=== PATIENT | female | born 1985 | race Asian ===

== ENCOUNTER 2018-10-13 20:06 | Inpatient (IN) | payer MEDICAID ==
[~2018-10-13] VITALS: Ht 154.9 cm; Wt 54.1 kg
[2018-10-13 20:27] VITALS: BP 104/69; PULSE 70; RESP 16
[2018-10-13] MEDS ORDERED: PREN-19 PO (20:31)
[2018-10-13] MEDS ORDERED: CALC600T24 PO (20:31)
[2018-10-13] MEDS ORDERED: ACET325T33 PO (20:31)
[2018-10-13] MEDS ORDERED: AL HYDROX/MG HYDROX/SIMETH 30 ML CUP PO PRN (22:00)
[2018-10-13] MEDS ORDERED: ACETAMINOPHEN 325 MG TAB PO PRN (22:00)
[2018-10-13] MEDS ORDERED: ONDANSETRON 4 MG INJ IV PRN (22:00)
[2018-10-13] MEDS: SOD CHLORIDE 0.9% 1,000 ML IV SCH (23:36)
[2018-10-14] MEDS: CEFTRIAXONE 1 GM/50 ML (PMX) 50 ML IVPB SCH ×2 (00:44→22:00)
--- NOTE | 2018-10-14 02:16 | TRIAGE ---
OB Triage Datetime Report Generated by CPN: 10/14/2018 02:16 Datetime: 10/14/2018 00:01 Heart Rate FHR Baseline Rate: 145 Monitor Mode: External US Variability: Moderate 6-25 bpm Accelerations: 10X10 Decelerations: None Category: Category I Comments: NST COMPLETED, REACTIVE NST APPROPRIATE FOR GA Datetime: 10/13/2018 23:42 Labor Evaluation Monitor Mode: External Monitor Mode: External US Comments: Starting qshift NST Datetime: 10/13/2018 22:48 Time of Arrival: 10/13/2018 22:00 EGA: 22.4 Arrived By: Ambulatory Arrived From: Home Chief Complaint: c/o [place] around rt eye, chest pain and rt shoulder pain since 1500 Movement: Present Contractions: Denies/Absent Rupture of Membranes: Denies Vaginal Bleeding: None Vaginal Discharge: Denies Recent Sexual Intercouse: Denies Abdominal Trauma: Not Applicable Patient Complaints: Back Pain; Headache; Other Time Provider Notified: 10/13/2018 21:30 Provider Notified: Dr Ramsey Initial Plan: EFM,UA Datetime: 10/13/2018 22:28 Comments: PT SITTING UP EATING, MONITOR LOSS OF CONTACT, RN WILL READJUST AFTER PT FINISHES EATING Datetime: 10/13/2018 22:14 Comments: Pt sitting up comforting her son, monitor loss of contact Datetime: 10/13/2018 22:03 Assessment Type: Admission Assessment Maternal Assessment Level of Consciousness: Fully Conscious DTR's/Clonus: DTRs 2+; No Clonus Headache: Denies Blurred Vision: No Respiratory Effort: Unlabored; Regular Rhythm; Equal Expansion Breath Sounds, Left: Clear and Equal Breath Sounds, Right: Clear and Equal Nausea/Vomiting: Denies RUQ Epigastric Pain: Denies Lower Extremities Edema: None Degree: None Upper Extremities Edema: None Degree: None Facial Edema: None Temperature Route: Oral Fall Risk Assessment History of Falling: (0) No Secondary Diagnosis: (0) No Ambulatory Aid: (0) Bedrest/Nurse Assist IV Therapy: (0) No Gait: (0) Normal/Bedrest/Immobile Mental Status: (0) Oriented to Own Ability Fall Score: 0 Fall Risk Score Definition: No Risk: No action required Pain Assessment Pain Scale: 0 Pain Presence: None/Denies Pain Type: N/A Datetime: 10/13/2018 22:00 Stage of : Antepartum Labor Evaluation Monitor Mode: External Monitor Mode: External US Comments: monitors applied, FHT audible at 145bpm Comments: MONITOR ON, PT IN LR1 Datetime: 10/13/2018 21:56 Comments: MONITOR OFF, PT UP TO BR THEN TO LR1 Datetime: 10/13/2018 21:41 Vaginal Exam Membrane Status: Intact Datetime: 10/13/2018 21:30 Stage of : OB Triage Datetime: 10/13/2018 21:17 Stage of : OB Triage Respiratory Effort: Unlabored Breath Sounds, Left: Clear and Equal Breath Sounds, Right: Clear and Equal Heart Rate FHR Baseline Rate: 150 Monitor Mode: External US FHR Baseline Changes: No Baseline Change Variability: Moderate 6-25 bpm Accelerations: 10X10 Category: Category I Comments: FHR AGA Pain Assessment Pain Scale: 6 Pain Presence: Constant Pain Type: Stabbing; Ache Pain Location: Right Flank Datetime: 10/13/2018 20:18 Stage of : OB Triage Maternal Assessment Level of Consciousness: Fully Conscious Headache: Occipital Blurred Vision: No Respiratory Effort: Unlabored Nausea/Vomiting: Denies RUQ Epigastric Pain: Denies Facial Edema: None Labor Evaluation Monitor Mode: External Resting Tone [place]: Relaxed Monitor Mode: External US Comments: FHT 155 Pain Assessment Pain Scale: 6 Pain Presence: Constant Pain Type: Stabbing; Pressure; Ache Pain Location: Back; Sternum
[2018-10-14] MEDS: SOD CHLORIDE 0.9% 1,000 ML IV SCH ×3 (07:39→21:56)
[2018-10-14] MEDS: PRENATAL VITAMIN PO SCH (08:22)
[2018-10-14] MEDS: FERROUS SULFATE (EC) 325 MG TAB PO SCH (08:22)
--- NOTE | 2018-10-14 13:50 | RADRPT ---
Vent Rate: 73 bpm RR Interval: 0 msec DE Interval: 128 msec QRS Duration: 80 msec QT Interval: 386 msec QTC Interval: 425 msec P-R-T [place]: 33 - 65 - 37 degrees Normal sinus rhythm Normal ECG Electronically Signed By: Stephan Salvador
--- NOTE | 2018-10-14 19:06 | HP ---
Date/Time of Note Date/Time of Note DATE: 10/14/18 TIME: 19:02 OB - History Hx of Present Chief Complaint: right flank pain Estimated Due Date: Feb 12, 2019 : 2 Para: 1 Spontaneous : 0 Therapeutic : 0 Care: Other (records not available) Obstetrical Complications: None Medical Complications: None Past Family/Social History * Past Medical, Surgical, Family and Obstetric Histories reviewed from chart. OB Admission Exam Vital Signs Vital Signs Vital Signs Date Temp Pulse Resp B/P (MAP) Pulse Ox O2 O2 Flow FiO2 Time Delivery Rate 10/13/18 97.8 70 16 104/69 Room Air 20:27 (81) Physical Exam HEENT: WNL Heart: Rhythm Normal Lungs: Clear Abdomen: WNL Extremities: Normal Reflexes: Normal Cervical Dilatation: None Heart Rate: 140's Last 72 hours Lab Results CBC & BMP 10/14/18 00:19 Liver Function Test 10/14/18 00:19 Alanine Aminotransferase (ALT/SGPT) 13 Albumin 3.5 Alkaline Phosphatase 121 Aspartate Amino Transf (AST/SGOT) 17 Direct Bilirubin 0.00 Total Protein 6.8 OB Assessment/Plan Reason for admission: other Other Assessment: R/O pyelonephritis Plan: Other Other plan: Admit Urine culture IV DESMOND Peoples MD Oct 14, 2018 19:05
[2018-10-15] MEDS: CEFTRIAXONE 1 GM/50 ML (PMX) 50 ML IVPB SCH (01:23)
[2018-10-15] MEDS: SOD CHLORIDE 0.9% 1,000 ML IV SCH (01:24)
[2018-10-15] MEDS: FERROUS SULFATE (EC) 325 MG TAB PO SCH (09:07)
[2018-10-15] MEDS: PRENATAL VITAMIN PO SCH (09:07)
--- NOTE | 2018-10-15 13:00 | DS ---
Date/Time of Note Date/Time of Note DATE: 10/15/18 TIME: 12:59 Obstetrical Discharge Record Final Diagnosis Final Diagnosis: not delivered Other Final Diagnosis Pyelonephritis Condition on Discharge Physical Assessment Voiding: Yes Bowel Movement: Yes Calf Tenderness: No Patient Condition: Stable DESMOND DOUGLAS MD Oct 15, 2018 13:00
== END 2018-10-15 14:15 | disposition home or self-care (01) | DRG 833 ==
LOC: OBT 20:06 → L-D 20:09 → OBT 21:30 → L-D 21:30
PROVIDERS: ADMIT Obstetrics & Gynecology; ATTEND Obstetrics & Gynecology
DX: O23.02 Infections of kidney in pregnancy, second trimester (principal); Z3A.22 22 weeks gestation of pregnancy
CPT/HCPCS: 76775; 76815; 80053; 81001; 85025; 85610; 85730; 86592; 86850; 86900; 86901; 87040; 87086; 93005; G0463; J0696; J7030